=== PATIENT | female | born 1980 | race Caucasian/White ===

== ENCOUNTER → 2023-08-11 10:04 | Outpatient (REF) | payer SELFPAY ==
[2023-08-11 10:58] LABS: % Basophils 0.2 % (0-2); % Eosinophils 1.4 % (0-6); % Immature Granulocytes 0.2 % (0-0.5); % Lymphocytes 24.5 % (20.5-51.1); % Monocytes 8.6 % (1.7-9.3); % Neutrophils 65.1 % (42.2-75.2); Absolute Eosinophils 0.1 10^3/uL (0-0.7); Absolute Monocytes 0.4 10^3/uL (0.1-0.6); Absolute Neutrophils 2.7 10^3/uL (1.4-6.5); Hematocrit 40.3 % (37.0-47.0); Mean Corp Hgb Conc. 34.7 g/dL (33.0-37.0); Mean Corpuscular Volume 92.2 fL (81.0-99.0); Mean Platelet Volume 10.8 fL (7.4-10.4); Nucleated Red Blood Cells % 0 %; Platelet Count 183 10^3/uL (130-400); Red Blood Cell Count 4.37 10^6/uL (4.20-5.40); Red Cell Dist. Width 11.5 % (11.5-14.5); White Blood Cell Count 4.2 10^3/uL (4.8-10.8)
[2023-08-11 10:59] LABS: Urine Albumin Trace (Neg - Trace); Urine Bilirubin Negative (Negative); Urine Character Clear (Clear); Urine Color Yellow; Urine Glucose Negative (Negative); Urine Ketone Trace (Negative); Urine Leukocyte Trace (Negative); Urine Nitrite Negative (Negative); Urine Occult Blood Negative (Negative); Urine Urobilinogen Negative (Neg - 1+)
[2023-08-11 11:23] LABS: Urine Mucus Many; Urine Squamous Cell >30 /LPF (Few)
[2023-08-11 11:26] LABS: ALT (SGPT) 19 U/L (0-35); AST (SGOT) 29 U/L (14-36); Albumin 4.7 g/dl (3.5-5.0); Alkaline Phosphatase 102 U/L (38-126); Blood Urea Nitrogen 14 mg/dl (7-17); Calcium 9.1 mg/dl (8.4-10.2); Carbon Dioxide 25 mmol/L (22-30); Chloride 106 mmol/L (98-107); Glucose 82 mg/dl (70-99); HDL Cholesterol 77 mg/dl; LDL Cholesterol, Calculated 38 mg/dl; Potassium 3.8 mmol/L (3.5-5.1); Sodium 139 mmol/L (135-145); Total Cholesterol 129 mg/dl (50-199); Total Protein 7.9 g/dl (6.3-8.2); Triglyceride 73 mg/dl (10-149); Urine Amorphous Seen; Urine Red Blood Cell 0-2 /HPF (0-2); Very Low Density Lipoprotein 14 mg/dl (0-30); eGFR > 60.00
[2023-08-11 11:27] LABS: Urine Bacteria Few (Negative)
[2023-08-11 11:44] LABS: Free T3 3.42 pg/ml (2.77-5.27); Free T4 1.26 ng/dl (0.78-2.19); Vitamin D, 25-OH*** 68.2 ng/mL (30-80)
[2023-08-11 11:57] LABS: Cortisol, Random 6.1 ug/dl; TSH 1.12 uIU/ml (0.47-4.68)
[2023-08-11 15:57] LABS: Rheumatoid Agglutinin Less Than 10 IU (<10 IU)
[2023-08-11 19:29] LABS: Hepatitis C Antibody Negative (Negative)
[2023-08-12 12:02] LABS: Thyroglobulin Antibodies <0.9 IU/mL (0.0-4.0); Thyroid Peroxidase Ab (TPO) 1.1 IU/mL (0.0-9.0)
[2023-08-12 17:30] LABS: HCV Quant by NAAT IU/mL Not Detected; HCV Quant by NAAT Interp Not Detected (Not Detected); HCV Quant by NAAT Log IU/mL Not Detected log IU/mL
[2023-08-12 18:04] LABS: EBV-EA (D) Ab IgG <5.0 U/mL (0.0-10.9); EBV-VCA IgM Antibodies 18.1 U/mL (0.0-43.9)
[2023-08-13 01:07] LABS: ANA, IgG Reflex to HEp-2 None Detected (None Detected)
== END ==
LOC: REG 10:04
PROVIDERS: ATTENDING PHYSICIAN Nurse Practitioner Family
DX: Z13.0 Encounter for screening for diseases of the blood and blood-forming organs and certain disorders involving the immune mechanism (principal); R53.83 Other fatigue; Z13.1 Encounter for screening for diabetes mellitus; M79.10 Myalgia, unspecified site; Z13.220 Encounter for screening for lipoid disorders; Z13.29 Encounter for screening for other suspected endocrine disorder; E55.9 Vitamin D deficiency, unspecified
CPT/HCPCS: 36415; 80053; 80061; 81003; 81015; 82306; 82533; 84436; 84439; 84443; 84481; 85025; 86038; 86376; 86430; 86663; 86664; 86665; 86800; 86803; 87522

== ENCOUNTER → 2023-08-24 10:19 | Outpatient (REF) | payer SELFPAY ==
[2023-08-24 11:50] LABS: Iron 97 ug/dl (37-170)
[2023-08-24 12:36] LABS: Vitamin B12 578 pg/ml (239-931)
[2023-08-25 11:36] LABS: Percent Saturation 22 % (20-50); Total Iron Binding Capacity 430 ug/dl (265-497)
== END ==
LOC: REG 10:19
PROVIDERS: ATTENDING PHYSICIAN Nurse Practitioner Family
DX: R53.83 Other fatigue (principal); M79.10 Myalgia, unspecified site
CPT/HCPCS: 36415; 82607; 82728; 83540; 83550

== ENCOUNTER → 2023-09-08 09:18 | Outpatient (REF) | payer SELFPAY ==
[2023-09-09 19:50] LABS: Copper, Serum 110.3 ug/dL (80.0-155.0)
[2023-09-10 18:04] LABS: Arsenic, Blood <10.0 ug/L (<=12.0); Lead - Venous <2.0 ug/dL (<=4.9); Mercury, Blood <2.5 ug/L (<=10.0)
== END ==
LOC: REG 09:18
PROVIDERS: ATTENDING PHYSICIAN Nurse Practitioner Family
DX: R53.81 Other malaise (principal); Z77.018 Contact with and (suspected) exposure to other hazardous metals
CPT/HCPCS: 36415; 82175; 82525; 83655; 83825

== ENCOUNTER → 2023-09-26 07:33 | Outpatient (REF) | payer SELFPAY | LOC: EMG 07:33 | PROVIDERS: ATTENDING PHYSICIAN Specialist; FAMILY PHYSICIAN Nurse Practitioner Family | DX: R20.2 Paresthesia of skin (principal) | CPT/HCPCS: 95886; 95911 ==

== ENCOUNTER 2023-09-27 09:04 | Emergency (ER) | payer OTHER, SELFPAY ==
[2023-09-27 09:05] VITALS: BP 134/89
--- NOTE | 2023-09-27 09:31 | ED.GENMED ---
History of Present Illness
General
Chief Complaint: Dizziness
Time Seen by Provider: 09/27/23 09:15
Travel History
Have you had any contact with someone who has COVID-19?: No
Do you have any symptoms of coronavirus? Fever > 100 degrees, chills, cough, shortness of breath, sore throat, loss of taste or smell, muscle aches, or headache?: No
History of Present Illness
History of Present Illness:
Patient is a 43-year-old female with past medical history of chronic fatigue syndrome here today for evaluation of several months of intermittent episodes of worsening fatigue associated with mild headaches, brain fog, trouble focusing, intermittent
episodes of blurry vision in her left eye, and a pain behind her left eye that comes and goes but is worsened with reading. The patient has also noted lightheadedness which is worsened with changing positions. The patient does feel when she
changes positions her heart rate spikes significantly. She has noted intermittent episodes of tingling and a burning sensation in her upper and lower extremities. No numbness. No focal weakness. No cough, rhinorrhea, or sore throat. She has
noted mild nausea but denies vomiting. She has had occasional episodes of diarrhea. She has noted intermittent episodes of ringing in her ears but denies hearing loss or ear pain. The patient denies alcohol or drug use. Patient's primary care
provider is aware of the patient's symptoms. She initially underwent laboratory testing including autoimmune testing and Lyme testing which were all negative. The patient was then directed to follow-up with a neurologist and lot boss.
Testing by the lot boss was noted to be negative. Patient is currently following with neurology, Dr. Ja Rodarte, at [facility]. She was recently ordered an EMG and nerve conduction study which was performed on 09/26/2023. Impressions were
noted to be normal. Patient has an MRI of her brain scheduled for 10/19/2023. The patient also reports being evaluated by an eye doctor who diagnosed her with dry eye but no other acute ophthalmologic conditions identified. The patient presented to
the urgent care earlier today as her symptoms have been persistent. Urgent care sent her to the emergency department for further testing and evaluation.
Past History
Past History
ED Past Medical History: None
ED Past Surgical History: Orthopedic and Other (Femur repair age)
Social History
Tobacco: Non-smoker
Alcohol: None
Drug: None
Personal:
Living: with family
Employment: Employed (works from home)
Review of Systems
Review of Systems
All Other Systems: ROS reviewed and negative except as documented in HPI and ROS
Phy Exam
Physical Exam
Physical Exam:
GENERAL: Alert , in no apparent distress
EYE: pupils equal and reactive to light, extraocular movement intact
NECK: Supple, no significant adenopathy.
ENT: o/p clr, mmm.
CARDIAC: Regular rate and rhythm .
LUNGS: Clear breath sounds bilaterally, no acute respiratory distress, no wheezes/rales/rhonchi
ABDOMEN: Soft, without focal tenderness, no r/g, no cvat
NEUROLOGICAL: Alert and oriented, no focal neuro deficits, cranial nerves II through XII intact, moving all extremities, normal sensation and motor, normal cerebellar exam
SKIN: Warm and dry, skin intact.
MUSCULOSKELETAL: No edema, well perfused.
PSYCH: Normal and appropriate interaction.
Course
Orders/Labs/Results
Orders:
Orders
09/27/23 09:36
Electrocardiogram (*1) Urgent
Reason for Study: Vertigo / Dizzy
EKG- Treatment ONCE
Orthostatic VS- Treatment ONCE
Test Result ONCE
09/27/23 10:27
Complete Blood Count/With Diff Urgent
Comprehensive Metabolic Panel Urgent
HCG, Serum Qualitative Screen Urgent
Comment: ADDED
Magnesium Urgent
Phosphorus Urgent
TSH Reflex To Free T4 Urgent
09/27/23 11:05
Add On- LAB Urgent
Tests Added?: serum hcg
Abnormal Lab Results
09/27/23
10:27
WBC 3.4 L 10^3/uL
(4.8-10.8)
RBC 4.07 L 10^6/uL
(4.20-5.40)
Hct 36.4 L %
(37.0-47.0)
MCH 31.9 H pg
(27.0-31.0)
Absolute Lymphs (auto) 0.9 L 10^3/uL
(1.2-3.4)
Chloride 111 H mmol/L
(98-107)
Creatinine 0.5 L mg/dL
(0.6-1.0)
09/27/23 10:27
09/27/23 10:27
Vital Signs
Initial and Last Documented VS:
Initial Vital Signs
Temp Pulse Resp BP Pulse Ox
98.3 F 61 20 134/89 99
09/27/23 09:05 09/27/23 09:05 09/27/23 09:05 09/27/23 09:05 09/27/23 09:05
Last Documented Vital Signs
Temp Pulse Resp BP Pulse Ox
98.3 F 63 16 129/65 97
09/27/23 09:05 09/27/23 12:10 09/27/23 12:10 09/27/23 12:10 09/27/23 12:10
MDM/Problems Addressed
Differential Diagnosis Includes:
Patient is a 43-year-old female with past medical history of chronic fatigue syndrome here today for evaluation of several months of fatigue associated with headaches, brain fog, trouble focusing, blurry vision and pain in her left eye,
lightheadedness, and abnormal paresthesias. Patient is currently under the care of her primary care provider and neurology and is undergoing a full workup. Overall, patient appears very well. Vital signs grossly within normal limits. Physical
examination described above. The patient is neurologically intact without acute focal deficits appreciated. Her exam is otherwise benign and reassuring. At this time, differential is broad and may be neurological in nature possibly secondary to
multiple sclerosis or peripheral neuropathy. We also discussed the possibility of an autoimmune related condition. The patient does report worsening symptoms with positional changes and therefore an autonomic condition such as POTS is certainly
possible. At this time, given chronicity of symptoms, well appearance of patient, reassuring examination, and lack of emergent findings, I do not believe CT imaging would be beneficial for the patient. She is recommended to follow-up with her
neurologist and have her MRI performed as an outpatient. Will obtain a urine test, basic screening labs/electrolytes, and orthostatic vital signs. Will closely monitor and reassess.
09/27/2023 12:35: Screening labs reveal mild leukopenia with a WBC count of 3.4. There is mild decrease in the RBC and hematocrit. Normal hemoglobin. Chloride slightly elevated at 111. Orthostatic vital signs negative. Patient reassessed. She
appears very well overall. At this time, no emergent conditions identified. Patient will require additional testing/follow-up as an outpatient. She voices understanding of the above plan. She appears well and stable for discharge. All questions
answered.
*EKG
Interpreted by ED Provider?: Yes
EKG Intrepretation Date: 09/27/23
EKG Intrepretation Time: 09:55
Interpretation: normal
Comparison EKG: no changes
Heart Rate: 55
Rate: bradycardiac
Rhythm: sinus and PAC's
[place]: normal axis
Interval: normal interval
QRS Pattern: normal QRS
Ischemia: no ischemia
*Critical Care Note
Total Time (30-74mins, 75-104mins- exclusive of procedures): Not Applicable
ED Attending Note
-
Portions of this chart may have been created with voice recognition software.� Occasional wrong word or��sound alike� substitutions may have occurred due to the inherent limitations of voice recognition software.
Discharge Plan
Departure
Patient Disposition: Home (Routine Discharge)
Date of Disposition: 09/27/23
Time of Disposition: 12:31
Patient with high blood pressure during this ER visit?: No
Condition: Good
Covid-19: Not Applicable
Discharge Problem:
Lightheadedness, Fatigue, Leukopenia
Instructions: Dizziness, Adult ED
Prescriptions:
No Action
therapeutic multivitamin Tablet
1 tab PO DAILY
calcium carbonate [Tums] 200 mg calcium (500 mg) Tablet,Chewable
200 mg PO BIDPRN PRN (Reason: gerd)
cholecalciferol (vitamin D3) [Vitamin D3] 25 mcg (1,000 unit) Capsule
125 mcg PO DAILY
ascorbic acid (vitamin C) [Vitamin C] 1,000 mg Tablet
1 g PO DAILY
simethicone 80 mg Tablet,Chewable
80 mg PO DAILYPRN PRN (Reason: GAS PAINS)
magnesium 200 mg Tablet
400 mg PO DAILY
Visbiome 112.5 billion cell Capsule
1 cap PO DAILY
melatonin 3 mg Capsule
3 mg PO HSPRN PRN (Reason: sleep)
The Gallbladdr Formula
2 tab PO DAILY
Tudca
2 tab PO DAILY
Rx Instructions:
TAUROURSODEOXYCHLIC ACID 500MG CAPSULES
acetaminophen [acetaminophen] 325 mg tablet
650 mg PO Q6HPRN PRN (Reason: mild pain) Qty: 14 0RF
tramadol 50 mg tablet
25 mg PO Q6HPRN PRN (Reason: severe pain/breakthrough pain) Qty: 8 0RF
ibuprofen 600 mg tablet
600 mg PO Q6H PRN (Reason: pain) Qty: 14 0RF
Referrals:
Letitia Evans CRNP [Family Provider] - Follow up in 5-7 days
Ja Rodarte MD [Active] - Follow up in 5-7 days
Activity Restrictions/Additional Instructions:
You were seen in the emergency department today for evaluation.
Your workup is largely unremarkable without any acute emergent abnormalities.
Your blood work does reveal a mildly decreased white blood cell count of 3.4, a mildly decreased RBC count and hematocrit, and mildly elevated chloride level.
Please follow-up closely with your family doctor and your neurologist.
Return for any new, worsening, or concerning symptoms.
Interventions
Interventions:
*Risk Screen - Suicide Last Done: 09/27/23 09:05
*General Assessment Last Done: 09/27/23 09:05
*Neglect/Abuse Screening Last Done: 09/27/23 09:05
ED- Fall Risk Assessment Last Done: 09/27/23 12:35
*ED COVID-19 Vaccine History Last Done: 09/27/23 10:11
*Nursing Disposition Last Done: 09/27/23 12:35
ED- Neurological Assessment Last Done: 09/27/23 12:11
ED- Cardiac Assessment Last Done: 09/27/23 12:11
Discharge Date and Time
Discharge Date/Time: 09/27/23 12:35
Print Language: IRISH
[2023-09-27 10:34] LABS: % Basophils 0.6 % (0-2); % Eosinophils 1.5 % (0-6); % Immature Granulocytes 0.3 % (0-0.5); % Lymphocytes 27.1 % (20.5-51.1); % Monocytes 9.1 % (1.7-9.3); % Neutrophils 61.4 % (42.2-75.2); Absolute Eosinophils 0.1 10^3/uL (0-0.7); Absolute Lymphocytes 0.9 10^3/uL (1.2-3.4); Absolute Monocytes 0.3 10^3/uL (0.1-0.6); Absolute Neutrophils 2.1 10^3/uL (1.4-6.5); Hematocrit 36.4 % (37.0-47.0); Mean Corp Hgb Conc. 35.7 g/dL (33.0-37.0); Mean Corpuscular Hgb 31.9 pg (27.0-31.0); Mean Corpuscular Volume 89.4 fL (81.0-99.0); Mean Platelet Volume 10.3 fL (7.4-10.4); Nucleated Red Blood Cells % 0 %; Platelet Count 163 10^3/uL (130-400); Red Blood Cell Count 4.07 10^6/uL (4.20-5.40); Red Cell Dist. Width 11.7 % (11.5-14.5); White Blood Cell Count 3.4 10^3/uL (4.8-10.8)
[2023-09-27 10:54] LABS: ALT (SGPT) 25 U/L (0-35); AST (SGOT) 36 U/L (14-36); Albumin 4.2 g/dl (3.5-5.0); Alkaline Phosphatase 82 U/L (38-126); Blood Urea Nitrogen 11 mg/dl (7-17); Calcium 9.2 mg/dl (8.4-10.2); Carbon Dioxide 22 mmol/L (22-30); Chloride 111 mmol/L (98-107); Glucose 86 mg/dl (70-99); Magnesium 2.1 mg/dl (1.6-2.3); Phosphorus 2.9 mg/dl (2.5-4.5); Potassium 4.5 mmol/L (3.5-5.1); Sodium 136 mmol/L (135-145); Total Bilirubin 0.8 mg/dl (0.2-1.3); Total Protein 7.2 g/dl (6.3-8.2); eGFR > 60.00
[2023-09-27 11:29] LABS: TSH Reflex To Free T4 0.66 uIU/ml (0.47-4.68)
[2023-09-27 11:46] LABS: HCG, Serum Qualitative Screen Negative
[2023-09-27 12:10] VITALS: BP 129/65
[2023-09-27 12:22] VITALS: BP 107/65; BP 115/77; BP 124/68; PULSE 52; PULSE 56; PULSE 60
== END 2023-09-27 12:35 | disposition home or self-care (01) ==
LOC: EMR 09:04
PROVIDERS: Physician Assistant; EMERGENCY PHYSICIAN Student in an Organized Health Care Education/Training Program; FAMILY PHYSICIAN Nurse Practitioner Family
DX: R42 Dizziness and giddiness (principal); R20.2 Paresthesia of skin; R51.9 Headache, unspecified; R53.83 Other fatigue; D72.819 Decreased white blood cell count, unspecified; G93.32 Myalgic encephalomyelitis/chronic fatigue syndrome
CPT/HCPCS: 99284; 80053; 83735; 84100; 84443; 84703; 85025; 93005

== ENCOUNTER → 2023-10-03 15:40 | Outpatient (REF) | payer SELFPAY ==
[2023-10-03 16:47] LABS: Erythrocyte Sed Rate 9 mm/hour (0-20)
[2023-10-03 17:06] LABS: C-Reactive Protein < 5.00 mg/L (0.0-10.00)
[2023-10-03 18:12] LABS: Folate > 20.0 ng/ml (2.76-20)
[2023-10-03 19:47] LABS: Hepatitis B Surface Antigen Negative (Negative)
[2023-10-03 20:05] LABS: Hepatitis B Core Ab, Total Negative (Negative); Hepatitis B Surface Antibody Positive
[2023-10-04 12:13] LABS: HIV Combo Negative (Negative)
[2023-10-05 19:33] LABS: HLA-B27 Negative (Negative)
[2023-10-06 02:23] LABS: SSA 52 (Ro)(ENA) Ab, IgG 3 AU/mL (0-40); SSA 60 (Ro)(ENA) Ab, IgG 0 AU/mL (0-40); SSB (La)(ENA) Ab, IgG 1 AU/mL (0-40)
[2023-10-06 02:51] LABS: CCP Antibody IgG/IgA 8 Units (0-19)
== END ==
LOC: REG 15:40
PROVIDERS: ATTENDING PHYSICIAN Internal Medicine Rheumatology; FAMILY PHYSICIAN Nurse Practitioner Family
DX: M79.7 Fibromyalgia (principal); M06.4 Inflammatory polyarthropathy; H04.123 Dry eye syndrome of bilateral lacrimal glands; G93.32 Myalgic encephalomyelitis/chronic fatigue syndrome; F32.A Depression, unspecified; Z20.5 Contact with and (suspected) exposure to viral hepatitis; Z20.6 Contact with and (suspected) exposure to human immunodeficiency virus [HIV]; Z20.1 Contact with and (suspected) exposure to tuberculosis; Z79.899 Other long term (current) drug therapy; M79.672 Pain in left foot; M25.511 Pain in right shoulder
CPT/HCPCS: 36415; 73030; 73630; 82746; 85652; 86140; 86200; 86235; 86704; 86706; 86812; 87340; 87389

== ENCOUNTER → 2023-10-19 19:01 | Outpatient (REF) | payer SELFPAY | LOC: MRI 19:01 | PROVIDERS: ATTENDING PHYSICIAN Specialist; FAMILY PHYSICIAN Nurse Practitioner Family | DX: R42 Dizziness and giddiness (principal) | CPT/HCPCS: 70553; A9575 ==

== ENCOUNTER 2023-11-16 10:43 | Outpatient (RCR) | payer SELFPAY ==
[2023-11-02 10:50] VITALS: BP 104/53
[2023-11-02] MEDS: VENOFER 110 MG IV (11:08)
[2023-11-02 12:21] LABS: % Basophils 0.4 % (0-2); % Eosinophils 3.2 % (0-6); % Lymphocytes 35.6 % (20.5-51.1); % Monocytes 9.7 % (1.7-9.3); % Neutrophils 51.1 % (42.2-75.2); Absolute Eosinophils 0.1 10^3/uL (0-0.7); Absolute Monocytes 0.3 10^3/uL (0.1-0.6); Absolute Neutrophils 1.4 10^3/uL (1.4-6.5); Hematocrit 35.2 % (37.0-47.0); Hemoglobin 12.5 g/dL (12.0-16.0); Mean Corp Hgb Conc. 35.5 g/dL (33.0-37.0); Mean Corpuscular Hgb 32.4 pg (27.0-31.0); Mean Corpuscular Volume 91.2 fL (81.0-99.0); Mean Platelet Volume 11.5 fL (7.4-10.4); Nucleated Red Blood Cells % 0 %; Platelet Count 160 10^3/uL (130-400); Red Blood Cell Count 3.86 10^6/uL (4.20-5.40); Red Cell Dist. Width 11.9 % (11.5-14.5); White Blood Cell Count 2.8 10^3/uL (4.8-10.8)
[2023-11-02 12:30] VITALS: BP 94/54
[2023-11-09 10:49] VITALS: BP 110/63
[2023-11-09] MEDS: VENOFER 110 MG IV (11:20)
--- NOTE | 2023-11-10 09:55 | W.PN.UPDATE ---
Update Note
- Progress Note Update
11/09/2023 08:55
Patient reports lower back and hip pain that seems to radiate from back. Denies any trouble with urination or any other signs or symptoms of urinary tract infection. She does have a history of fibromyalgia. Was recently treated with Venofer and
was wondering if it was related. We discussed that unlikely related to Venofer as this usually causes generalized aches and pains or flulike symptoms. She will continue to monitor coming today for treatment as scheduled. She has LAD contact
information and knows to call for any additional questions or concerns. I informed the treating nurse Basilia Morris that she will assess the patient upon arrival and contact me as needed.
[2023-11-16 10:51] VITALS: BP 115/65
[2023-11-16] MEDS: VENOFER 110 MG IV (11:16)
[2023-11-16 13:00] VITALS: BP 92/51
== END 2023-11-17 11:24 | disposition home or self-care (01) ==
LOC: OID 10:43
PROVIDERS: ATTENDING PHYSICIAN Internal Medicine Hematology & Oncology; FAMILY PHYSICIAN Nurse Practitioner Family
DX: D50.9 Iron deficiency anemia, unspecified (principal); R06.09 Other forms of dyspnea; R53.82 Chronic fatigue, unspecified; R13.10 Dysphagia, unspecified; R53.1 Weakness
CPT/HCPCS: 36415; 85025; 96365; J1756

== ENCOUNTER → 2023-11-18 08:45 | Outpatient (REF) | payer SELFPAY | LOC: RCS 08:45 | PROVIDERS: ATTENDING PHYSICIAN Internal Medicine Cardiovascular Disease; FAMILY PHYSICIAN Nurse Practitioner Family | DX: R42 Dizziness and giddiness (principal); R00.2 Palpitations | CPT/HCPCS: 93225; 93226 ==

== ENCOUNTER 2023-12-07 10:39 | Outpatient (RCR) | payer SELFPAY ==
[2023-11-30 10:50] VITALS: BP 104/57
[2023-11-30] MEDS: VENOFER 110 MG IV (11:21)
[2023-11-30 12:43] VITALS: BP 97/55
[2023-12-07 10:45] VITALS: BP 107/60
[2023-12-07 11:23] LABS: % Basophils 0.6 % (0-2); % Lymphocytes 28.7 % (20.5-51.1); % Monocytes 10.1 % (1.7-9.3); % Neutrophils 58.6 % (42.2-75.2); Absolute Eosinophils 0.1 10^3/uL (0-0.7); Absolute Monocytes 0.4 10^3/uL (0.1-0.6); Hematocrit 37.7 % (37.0-47.0); Mean Corp Hgb Conc. 34.5 g/dL (33.0-37.0); Mean Corpuscular Hgb 32.8 pg (27.0-31.0); Mean Corpuscular Volume 95.2 fL (81.0-99.0); Mean Platelet Volume 10.2 fL (7.4-10.4); Platelet Count 164 10^3/uL (130-400); Red Blood Cell Count 3.96 10^6/uL (4.20-5.40); Red Cell Dist. Width 11.9 % (11.5-14.5); White Blood Cell Count 3.5 10^3/uL (4.8-10.8)
[2023-12-07] MEDS: VENOFER 110 MG IV (11:28)
[2023-12-07 12:35] VITALS: BP 97/60
== END 2023-12-08 08:49 | disposition home or self-care (01) ==
LOC: OID 10:39
PROVIDERS: ATTENDING PHYSICIAN Internal Medicine Hematology & Oncology; FAMILY PHYSICIAN Nurse Practitioner Family
DX: D50.9 Iron deficiency anemia, unspecified (principal); R06.09 Other forms of dyspnea; R13.10 Dysphagia, unspecified; R53.83 Other fatigue
CPT/HCPCS: 36415; 85025; 96365; J1756

== ENCOUNTER → 2023-12-14 09:59 | Outpatient (REF) | payer OTHER, SELFPAY ==
[2023-12-14 11:35] LABS: % Basophils 0.6 % (0-2); % Eosinophils 0.9 % (0-6); % Lymphocytes 33.4 % (20.5-51.1); % Monocytes 8.9 % (1.7-9.3); % Neutrophils 56.2 % (42.2-75.2); Absolute Lymphocytes 1.1 10^3/uL (1.2-3.4); Absolute Monocytes 0.3 10^3/uL (0.1-0.6); Absolute Neutrophils 1.8 10^3/uL (1.4-6.5); Hemoglobin 13.9 g/dL (12.0-16.0); Iron 127 ug/dl (37-170); Mean Corp Hgb Conc. 35.6 g/dL (33.0-37.0); Mean Corpuscular Hgb 33.6 pg (27.0-31.0); Mean Corpuscular Volume 94.2 fL (81.0-99.0); Mean Platelet Volume 11.3 fL (7.4-10.4); Nucleated Red Blood Cells % 0 %; Platelet Count 163 10^3/uL (130-400); Red Blood Cell Count 4.14 10^6/uL (4.20-5.40); White Blood Cell Count 3.3 10^3/uL (4.8-10.8)
[2023-12-14 11:45] LABS: Percent Saturation 39 % (20-50); Total Iron Binding Capacity 323 ug/dl (265-497)
== END ==
LOC: REG 09:59
PROVIDERS: ATTENDING PHYSICIAN Internal Medicine Hematology & Oncology; FAMILY PHYSICIAN Nurse Practitioner Family
DX: D50.9 Iron deficiency anemia, unspecified (principal); D72.819 Decreased white blood cell count, unspecified
CPT/HCPCS: 36415; 82728; 83540; 83550; 85025

== ENCOUNTER → 2024-01-06 09:45 | Outpatient (REF) | payer OTHER, SELFPAY | LOC: DHSLP 09:45 | PROVIDERS: ATTENDING PHYSICIAN Internal Medicine; FAMILY PHYSICIAN Nurse Practitioner Family | DX: G47.00 Insomnia, unspecified (principal); R06.83 Snoring | CPT/HCPCS: 95810 ==

== ENCOUNTER → 2024-01-07 07:00 | Outpatient (REF) | payer OTHER, SELFPAY | LOC: DHSLP 07:00 | PROVIDERS: ATTENDING PHYSICIAN Internal Medicine; FAMILY PHYSICIAN Nurse Practitioner Family | DX: G47.11 Idiopathic hypersomnia with long sleep time (principal) | CPT/HCPCS: 95805 ==

== ENCOUNTER → 2024-04-14 07:57 | Outpatient (REF) | payer OTHER, SELFPAY ==
[2024-04-14 08:36] LABS: % Basophils 0.4 % (0-2); % Eosinophils 1.7 % (0-6); % Immature Granulocytes 0.2 % (0-0.5); % Lymphocytes 24.7 % (20.5-51.1); % Monocytes 8.2 % (1.7-9.3); % Neutrophils 64.8 % (42.2-75.2); Absolute Eosinophils 0.1 10^3/uL (0-0.7); Absolute Lymphocytes 1.2 10^3/uL (1.2-3.4); Absolute Monocytes 0.4 10^3/uL (0.1-0.6); Hematocrit 37.9 % (37.0-47.0); Hemoglobin 13.2 g/dL (12.0-16.0); Mean Corp Hgb Conc. 34.8 g/dL (33.0-37.0); Mean Corpuscular Hgb 32.8 pg (27.0-31.0); Mean Platelet Volume 10.2 fL (7.4-10.4); Nucleated Red Blood Cells % 0 %; Platelet Count 195 10^3/uL (130-400); Red Blood Cell Count 4.03 10^6/uL (4.20-5.40); Red Cell Dist. Width 11.2 % (11.5-14.5); White Blood Cell Count 4.7 10^3/uL (4.8-10.8)
[2024-04-14 09:17] LABS: ALT (SGPT) 41 U/L (0-35); AST (SGOT) 36 U/L (14-36); Albumin 4.4 g/dl (3.5-5.0); Alkaline Phosphatase 74 U/L (38-126); Blood Urea Nitrogen 18 mg/dl (7-17); Carbon Dioxide 27 mmol/L (22-30); Chloride 104 mmol/L (98-107); Glucose 89 mg/dl (70-99); HDL Cholesterol 77 mg/dl; LDL Cholesterol, Calculated 68 mg/dl; Potassium 4.2 mmol/L (3.5-5.1); Sodium 141 mmol/L (135-145); Total Bilirubin 0.6 mg/dl (0.2-1.3); Total Cholesterol 157 mg/dl (50-199); Total Protein 7.3 g/dl (6.3-8.2); Triglyceride 64 mg/dl (10-149); Very Low Density Lipoprotein 12 mg/dl (0-30); eGFR > 60.00
[2024-04-14 10:06] LABS: Urine Albumin Negative (Neg - Trace); Urine Bilirubin Negative (Negative); Urine Character Clear (Clear); Urine Color Yellow; Urine Glucose Negative (Negative); Urine Ketone Negative (Negative); Urine Leukocyte Negative (Negative); Urine Nitrite Negative (Negative); Urine Occult Blood Negative (Negative); Urine Urobilinogen Negative (Neg - 1+)
== END ==
LOC: REG 07:57
PROVIDERS: ATTENDING PHYSICIAN Nurse Practitioner Family
DX: Z13.220 Encounter for screening for lipoid disorders (principal); D72.819 Decreased white blood cell count, unspecified; Z13.1 Encounter for screening for diabetes mellitus; Z13.89 Encounter for screening for other disorder
CPT/HCPCS: 36415; 80053; 80061; 81003; 85025

== ENCOUNTER → 2024-04-27 10:49 | Outpatient (REF) | payer SELFPAY | LOC: EEG 10:49 | PROVIDERS: ATTENDING PHYSICIAN Specialist; FAMILY PHYSICIAN Nurse Practitioner Family | DX: G40.109 Localization-related (focal) (partial) symptomatic epilepsy and epileptic syndromes with simple partial seizures, not intractable, without status epilepticus (principal) | CPT/HCPCS: 95816 ==

== ENCOUNTER → 2024-07-27 07:35 | Outpatient (REF) | payer SELFPAY ==
[2024-07-27 10:14] LABS: Rubella Positive
== END ==
LOC: REG 07:35
PROVIDERS: ATTENDING PHYSICIAN Family Medicine
DX: Z01.84 Encounter for antibody response examination (principal)
CPT/HCPCS: 36415; 86735; 86762; 86765

== ENCOUNTER → 2024-12-11 11:24 | Outpatient (REF) | payer SELFPAY | LOC: PAVMRI 11:24 | PROVIDERS: ATTENDING PHYSICIAN Specialist; FAMILY PHYSICIAN Nurse Practitioner Family | DX: R42 Dizziness and giddiness (principal) | CPT/HCPCS: 70553; A9575 ==

== ENCOUNTER → 2025-02-14 11:25 | Outpatient (REF) | payer SELFPAY ==
[2025-02-14 12:39] LABS: Hematocrit 39.3 % (37.0-47.0); Hemoglobin 13.3 g/dL (12.0-16.0); Mean Corp Hgb Conc. 33.8 g/dL (33.0-37.0); Mean Corpuscular Volume 92.0 fL (81.0-99.0); Nucleated Red Blood Cells % 0 %; Platelet Count 182 10^3/uL (130-400); Red Cell Dist. Width 11.4 % (11.5-14.5)
[2025-02-14 12:56] LABS: Urine Character Clear (Clear)
[2025-02-14 13:43] LABS: ALT (SGPT) 18 U/L (0-35); AST (SGOT) 26 U/L (14-36); Albumin 4.8 g/dl (3.5-5.0); Alkaline Phosphatase 71 U/L (38-126); Blood Urea Nitrogen 12 mg/dl (7-17); Calcium 9.2 mg/dl (8.4-10.2); Carbon Dioxide 22 mmol/L (22-30); Chloride 108 mmol/L (98-107); Glucose 79 mg/dl (70-99); HDL Cholesterol 74 mg/dl; LDL Cholesterol, Calculated 66 mg/dl; Potassium 4.2 mmol/L (3.5-5.1); Sodium 139 mmol/L (135-145); Total Protein 7.9 g/dl (6.3-8.2); Very Low Density Lipoprotein 12 mg/dl (0-30); eGFR > 60.00
[2025-02-14 15:53] LABS: Vitamin D, 25-OH*** 37.6 ng/mL (30-80)
[2025-02-14 16:08] LABS: TSH 0.82 uIU/ml (0.47-4.68)
[2025-02-14 16:27] LABS: Vitamin B12 400 pg/ml (239-931)
== END ==
LOC: REG 11:25
PROVIDERS: ATTENDING PHYSICIAN Nurse Practitioner Family
DX: E56.0 Deficiency of vitamin E (principal); Z13.0 Encounter for screening for diseases of the blood and blood-forming organs and certain disorders involving the immune mechanism; Z13.1 Encounter for screening for diabetes mellitus; Z13.220 Encounter for screening for lipoid disorders; Z13.29 Encounter for screening for other suspected endocrine disorder; Z13.89 Encounter for screening for other disorder; E53.8 Deficiency of other specified B group vitamins; E55.9 Vitamin D deficiency, unspecified; E50.9 Vitamin A deficiency, unspecified; M25.50 Pain in unspecified joint
CPT/HCPCS: 36415; 80053; 80061; 81003; 82306; 82607; 84443; 84446; 84590; 85025; 85652

== ENCOUNTER → 2025-03-19 16:26 | Outpatient (REF) | payer SELFPAY ==
[2025-03-21 12:37] LABS: Lyme Antibody Screen, EIA Negative (Negative)
== END ==
LOC: REG 16:26
PROVIDERS: ATTENDING PHYSICIAN Specialist; FAMILY PHYSICIAN Nurse Practitioner Family
DX: A69.20 Lyme disease, unspecified (principal)
CPT/HCPCS: 36415; 86618

== ENCOUNTER → 2025-04-11 09:32 | Outpatient (REF) | payer SELFPAY ==
[2025-04-11 12:40] LABS: C-Reactive Protein < 5.00 mg/L (0.0-10.00)
[2025-04-11 13:06] LABS: Uric Acid 2.3 mg/dl (2.5-6.2)
[2025-04-13 02:42] LABS: CCP Antibody IgG/IgA 3 Units (0-19)
== END ==
LOC: REG 09:32
PROVIDERS: ATTENDING PHYSICIAN Student in an Organized Health Care Education/Training Program; FAMILY PHYSICIAN Nurse Practitioner Family
DX: D72.819 Decreased white blood cell count, unspecified (principal); F32.A Depression, unspecified; G51.0 Bell's palsy; M25.649 Stiffness of unspecified hand, not elsewhere classified; M79.641 Pain in right hand; M79.642 Pain in left hand; M79.7 Fibromyalgia; R20.8 Other disturbances of skin sensation; R41.89 Other symptoms and signs involving cognitive functions and awareness; R53.82 Chronic fatigue, unspecified
CPT/HCPCS: 36415; 82550; 82784; 84155; 84165; 84550; 85652; 86140; 86200

== ENCOUNTER → 2025-04-29 07:59 | Outpatient (REF) | payer OTHER, SELFPAY | LOC: WDC 07:59 | PROVIDERS: ATTENDING PHYSICIAN Nurse Practitioner Adult Health; FAMILY PHYSICIAN Nurse Practitioner Family | DX: Z12.31 Encounter for screening mammogram for malignant neoplasm of breast (principal) | CPT/HCPCS: 77063; 77067 ==

== ENCOUNTER → 2025-05-15 08:37 | Outpatient (REF) | payer OTHER, SELFPAY | LOC: PAVMRI 08:37 | PROVIDERS: ATTENDING PHYSICIAN Specialist; FAMILY PHYSICIAN Nurse Practitioner Family | DX: M53.1 Cervicobrachial syndrome (principal) | CPT/HCPCS: 72156; A9575 ==